=== PATIENT | female | born 1985 | race American Indian/Alaskan Native ===

== ENCOUNTER 2018-01-23 19:01 | Inpatient (IN) | payer BC, OTHER ==
[2018-01-23 19:50] VITALS: BMI 41.1
[2018-01-23 21:01] LABS: BASO % 0.2 % (0.0-2.0); EOS # 0.1 K/uL (0.0-0.7); EOS % 1.1 % (0.0-4.0); HEMOGLOBIN 12.3 g/dL (12.0-16.0); LYMPH # 2.2 K/uL (1.0-4.3); LYMPH % 26.3 % (20.0-40.0); MEAN CORPUSCULAR HEMOGLOBIN 28.1 pg (27.0-31.0); MEAN CORPUSCULAR HGB CONC 33.1 g/dL (33.0-37.0); MEAN PLATELET VOLUME 9.4 fl (7.2-11.7); MONO # 0.9 K/uL (0.0-0.8); MONO % 10.8 % (0.0-10.0); NEUT # 5.1 K/uL (1.8-7.0); NEUT % 61.6 % (50.0-75.0); NRBC % 0.1 % (0.0-0.0); RBC 4.36 Mil/uL (3.80-5.20); RED CELL DISTRIBUTION WIDTH 14.2 % (11.5-14.5); WHITE BLOOD COUNT 8.2 K/uL (4.8-10.8)
[2018-01-24] MEDS ORDERED: Oxytocin 30 UNIT 30 UNITS/500 ML BAG IV ONE ×2 (07:49→07:50)
--- NOTE | 2018-01-24 07:56 | OBHP ---
Datetime: 01/24/2018 07:55 Presentation-Admit: Vertex FHR - Baseline A Provider: 135 Membranes, Provider: Intact Contraction Comments Provider: occ Pool Provider: Negative NICHD Variability Prov Fetus A: Moderate 6-25bpm NICHD Accel Fetus A IP Provider: 15X15 FHR Category Provider Fetus A: Category I NICHD Decel Fetus A IP Provider: None Dilatation, Provider: 2-3 Effacement, Provider: 50 Station, Provider: high Datetime: 01/23/2018 19:45 Admit Comment, IP Provider: 32 y/o female 40.0 wk GA admitted to L_D for IOL due to decrease d movement and oligohydramnios. She denies vaginal bleeding/VFL. She denies headache/nausea/vom iting. She is GBS+. PNC: Dr. Gan Obhx: , GBS+ PMH: alpha thalessemia carrier, eczema, pre-diabetic prior to PSurgical:none Famhx:father has DM Socialhx:denies tobacco, etoh, recreational drug use Home Rx: vitamins and iron supplements 45mg Allergies: cucumbers, NKDA O: Afebrile BP 117/61 HR 85 Heart: RRR Chest: CTA B/L Abd: Soft,NT ,Bs- present FHR: 160 Burna: no contractions SVE: closed cervix per Dr. Gan Assessment: IUP at 40.0 wk GA GBS+ Encounter for Induction of labor NST - Reactive Cervix closed Plan: Admit to LND cbc ordered Type and screen Cervidil 10mg Vag once Penicillin G 5 mu IVPB once and Penicillin G 2.5 mu IVPB Q4H when patient is in labor May have epidural. Anesthesiologist consulted. Vanessa Champagne PGY-I OB Hospitalist on-call : With PGY1, I saw and examined this patinet. She had decreased FM and son o today showed alyssa 5 - sent by Dr Jyothi Gan for IOL. Pt pierce was told about conditoin, meds, pain management, labor, delivey and ...will start Cervidil (SEE PREVIOUS SHOAIB NOTE) EGA AdmitDate IP: 40.0 IP Indication for Induction: Oligohydramnios; Other IP Indication for Induction Oth: decreased movement Datetime: 01/23/2018 19:30 IP Adm Impression: Term, intrauterine ; No Active Labor; Intact Membranes IP Admit Plan: Admit to unit; Initiate labor induction protocol Pelvic Type - PN: Not Done Extremities - PN: Normal Abdomen - PN: Normal Back - PN: Normal Breast - PN: Not Done Lungs - PN: Normal Heart - PN: Normal Thyroid - PN: Normal Neurologic - PN: Normal HEENT - PN: Normal General - PN: Normal Gestation - Est Wks by US: 40.0 IP Hx Assessment: The History has been Reviewed and is Current Vital Signs Provider: Reviewed; Within Normal Limits IP Chief Complaint: Decreased movement Genitourinary Exam: Not Done DTRs - PN: Not Done
--- NOTE | 2018-01-24 07:59 | OBPN ---
Datetime: 01/24/2018 07:55 IP Progress Impression: Reassuring heart rate IP Informed Consent Obtain: Vaginal Delivery IP Progress Plan: Augmentation; Anticipate Vaginal Delivery Pool Provider: Negative Membranes, Provider: Intact Contraction Comments Provider: occ FHR - Baseline A Provider: 135 Presentation-Admit: Vertex IP Progress Note Comment: OB Hospitalist irrigation district manager...earlier 6am I was called and told that decels not ed. Cervidil was removed. I saw patient and explained conditoin...observed tracing and FHR improved /reactive and no decels noted. SVE 2-3cm latent phase of labor...will start Pitocin and PCN for GBS+....pt's questoins answered a nd she understood [facility] ROS[facility] Accel Fetus A IP Provider: 15X15 FHR Category Provider Fetus A: Category I NICHD Variability Prov Fetus A: Moderate 6-25bpm Dilatation, Provider: 2-3 Effacement, Provider: 50 Station, Provider: high NICHD Decel Fetus A IP Provider: None Datetime: 01/23/2018 19:30 Gestation - Est Wks by US: 40.0 Vital Signs Provider: Reviewed; Within Normal Limits
[2018-01-24] MEDS ORDERED: OXYTOCIN/0.9 % NS 20 UNIT/1,000 ML BAG IV SCH (08:00)
[2018-01-24] MEDS ORDERED: Penicillin G 5 Million Unit Vial IVPB ONE (08:03)
[2018-01-24] MEDS ORDERED: Lactated Ringer's 1,000 ML IV SCH ×3 (08:15→16:58)
--- NOTE | 2018-01-24 11:22 | OBPN ---
Datetime: 01/24/2018 10:20 IP Progress Impression Other: Category I FHT IP Procedures: Sterile Vag Exam IP Progress Plan: Continue present management; Induction FHR - Baseline A Provider: 120s IP Progress Note Comment: Category I FHT. Discussed plan with patient and all patient questions ans wered. Continue current management. Vital Signs Provider: Reviewed; Within Normal Limits NICHD Accel Fetus A IP Provider: 15X15 FHR Category Provider Fetus A: Category I NICHD Variability Prov Fetus A: Moderate 6-25bpm Dilatation, Provider: 2-3 Effacement, Provider: 50 Station, Provider: -3 NICHD Decel Fetus A IP Provider: None
[2018-01-24] MEDS ORDERED: Fentanyl/Bupivacaine HCl 250 ML EPI ONE (11:52)
[2018-01-24] MEDS ORDERED: Bupivacaine HCl 0.5% PF (30 ml) Inj ONE (12:04)
[2018-01-24] MEDS ORDERED: ceFAZolin 2 GM in Sodium Chloride 0.9% 100 ML IVPB ONE (13:08)
[2018-01-24] MEDS ORDERED: ceFAZolin IV 1 gm in Dextrose 2 GM/100 ML BAG IVPB ONE (13:08)
[2018-01-24] MEDS ORDERED: Morphine 1 mg/ml preservative-free Inj(Duramorph) ONE (13:32)
[2018-01-24] MEDS ORDERED: Oxytocin 10 Units/ml Inj ONE (13:51)
[2018-01-24] MEDS ORDERED: Oxycodone/Acetaminophen 5/325 mg Tab PO PRN ×4 (14:20→16:58)
[2018-01-25 06:34] LABS: HEMOGLOBIN 11.6 g/dL (12.0-16.0); MEAN CELL VOLUME 84.7 fl (81.0-99.0); MEAN CORPUSCULAR HEMOGLOBIN 27.7 pg (27.0-31.0); MEAN CORPUSCULAR HGB CONC 32.7 g/dL (33.0-37.0); RBC 4.17 Mil/uL (3.80-5.20); RED CELL DISTRIBUTION WIDTH 14.2 % (11.5-14.5); WHITE BLOOD COUNT 10.9 K/uL (4.8-10.8)
--- NOTE | 2018-01-25 08:49 | OBDS ---
DELIVERY PERSONNEL Delivery Doctor: Selma Garcia MD Scrub Nurse: Mel [employer] Program Manager: Tati Barreto RN Anesthesiologist: Dr. Becker Resident: Dr. Man MATERNAL INFORMATION Delivery Anesthesia: Epidural Medications in Delivery: Pitocin 30 units Estimated Blood Loss (ml): 800 Placenta Cultured: No Maternal Complications: None Provider Comments: Primary low flap transverse section via Pfannenstiel incision. Patient d elivered viable with Apgars of 9 and 9 at one and 5 minutes respectively. Normal uterus, ramez l tubes and ovaries bilaterally. Estimated blood loss 800 mL Fluids 1600 mL lactated Ringer Ringer's Urine output 200 mL of clear urine No complications. Patient tolerated procedure well. LABOR SUMMARY EDC: 01/23/2018 00:00 No. Babies in Womb: 1 Attempted: No Labor Anesthesia: Epidural LABOR INFORMATION Reason for Induction: Oligohydramnios; Other Reason for Induction Other: decreased movement Cervical Ripening Agents: Cervidil Oxytocin: Augmentation Group B Beta Strep: Positive Antibiotics # of Doses: 2 Antibiotics Time of Last Dose: 1200 Steroids Given: None Reason Steroids Not Administered: Not Applicable MEMBRANES Membranes Rupture Method: Spontaneous Rupture of Membranes: 01/24/2018 11:30 Length of Rupture (hrs): 1.83 Amniotic Fluid Color: Clear Amniotic Fluid Amount: Small Amniotic Fluid Odor: Normal STAGES OF LABOR Stage 3 hrs: -1 Stage 3 min: -59 CSECTION DELIVERY Primary Indication: Nonreassuring Status Other Primary Indication: Bradycardia Secondary Indication: Failed Induction CSection Urgency: Emergency CSection Incidence: Primary Labor: Labor Elective: Elective CSection Incision: Lower Uterine Transverse BABY A INFORMATION Delivery Date/Time: 01/24/2018 13:20 Method of Delivery: Born in Route : No : N/A Forceps: N/A Vacuum Extraction: N/A Shoulder Dystocia : No SHOULDER DYSTOCIA BABY A Delivery Date/Time: 01/24/2018 13:20 PRESENTATION/POSITION BABY A Presentation: Cephalic Cephalic Presentation: Vertex Breech Presentation: N/A PLACENTA INFORMATION BABY A Placenta Delivery Time : 01/24/2018 11:21 Placenta Method of Delivery: Spontaneous Placenta Status: Delivered SCORES BABY A Heart Rate 1 min: >100 bpm Resp Effort 1 min: Good Cry Reflex Irritability 1 min: Cough or Sneeze or Pulls Away Muscle Tone 1 min: Active Motion Color 1 min: Body [place], Extremities Blue Resuscitation Effort 1 min: Tactile Stimulation SCORE 1 MIN: 9 Heart Rate 5 min: >100 bpm Resp Effort 5 min: Good Cry Reflex Irritability 5 min: Cough or Sneeze or Pulls Away Muscle Tone 5 min: Active Motion Color 5 min: Body [place], Extremities Blue Resuscitation Effort 5 min: Tactile Stimulation SCORE 5 MIN: 9 INFORMATION BABY A Gestational Age at Delivery: 40.0 Gestational Status: Term Outcome : Liveborn Infant Condition : Stable Infant Sex: Male IDENTIFICATION/MEDS BABY A ID Band Number: [id number] ID Band Location: Left Leg; Left Arm WEIGHT/LENGTH BABY A Infant Birthweight (gms): 2590 Infant Weight (lb): 5 Infant Weight (oz): 11 CORD INFORMATION BABY A No. Cord Vessels: 3 Nuchal Cord : N/A Cord Blood Taken: N/A Suction: None ASSESSMENT BABY A Infant Complications: Decreased Variability; Extended Bradycardia; Multiple Variable Decels; O ligohydramnios Physical Findings at Delivery: Within Normal Limits Infant Respirations: Appears Normal Pattern Painter/ALS Called : No Care By: Nirali Kwan Transferred To: Remains with Mother
[2018-01-25] MEDS ORDERED: Multivitamin With Minerals Tab PO SCH (09:00)
[2018-01-25] MEDS: Multivitamin With Minerals Tab PO SCH (09:30)
--- NOTE | 2018-01-25 11:55 | OBPPN ---
Datetime: 01/25/2018 11:49 PP Pain Prov: Within normal limits PP Nausea Prov: Denies PP Flatus Prov: No PP BM Prov: No PP Breasts Prov: Normal PP Heart Prov: Normal PP Lungs Prov: Normal PP Abdomen/Uterus Prov: Normal PP Lochia Prov: Normal PP Vulva/Perineum Prov: Normal PP CVA Tenderness Prov: Normal PP Extremities Prov: Normal PP C/S Incision Prov: Normal PP Progress Prov: Normal PP Impression Other Prov: urinary retention PP Progress Note Prov: She was seen on rounds earlier - right after hensley removed. SHe felt fime and waiting to urinate. No prblems after delivery. Nurse notified that she had abd pain after I had se en her and straight cath ordered (1300cc obtained) H/H A: S/P day 1 urianry retention PLAN: monitor postop; consider foely if another episode Vital Signs Provider PP: Reviewed; Within Normal Limits
--- NOTE | 2018-01-25 20:37 | OP ---
PROCEDURE DATE: 01/24/2018 PREOPERATIVE DIAGNOSES: Category III heart tracing, persistent bradycardia. POSTOPERATIVE DIAGNOSES: Category III heart tracing, persistent bradycardia. OPERATION PERFORMED: Primary low flap transverse section via Pfannenstiel incision. OPERATIVE FINDINGS: Viable infant with Apgars of 9 and 9 at one and five minutes respectively. Normal uterus, normal tubes, and normal ovaries bilaterally. ESTIMATED BLOOD LOSS: 800 mL. FLUIDS: 1600 mL of lactated Ringer's. URINE OUTPUT: 200 mL of clear urine at the end of procedure. COMPLICATIONS: No complications. SURGEON: Santiago Garcia MD OVEN DUMPER: Dr. Man. ANESTHESIOLOGIST: Dylan Becker MD ANESTHESIA: Epidural. DESCRIPTION OF PROCEDURE: The patient was taken to the operating room where epidural anesthesia was found to be adequate. The patient was prepped and draped in normal sterile fashion in the dorsal supine position with leftward tilt. A Pfannenstiel skin incision was made with a scalpel. This was carried down through to the underlying layer of fascia with a scalpel. A midline dissection was made in the fascial layer with scalpel. The fascial incision was then extended bilaterally sharply with curved Mcintyre scissors. The fascial layer was from the underlying rectus muscles both bluntly and sharply with curved Mcintyre scissors. The rectus muscles were at the midline. The peritoneum was then identified, tented up with Kina clamps x2, and entered sharply with Metzenbaum scissors. This peritoneal incision was then extended superiorly and inferiorly with good visualization of the urinary bladder. Bladder blade was inserted into the abdomen. The vesicouterine peritoneum was then identified, tented up with Kina clamps x2, and entered sharply with Metzenbaum scissors. This peritoneal incision was then extended bilaterally with Metzenbaum scissors. The bladder flap was created digitally. The Greenway retractor was placed over the urinary bladder. The uterus was incised with a scalpel. The uterine incision was extended bilaterally bluntly. The infant's head was delivered atraumatically. Nose and mouth were suctioned with bulb suction. The remainder of the infant was delivered without complication. The cord was clamped and cut. The was handed off to awaiting pediatricians. Cord gases were collected. Cord blood was collected. The placenta was removed manually. The uterus was cleared of all clots and debris. The uterine incision was repaired with 0 Vicryl in a running, locked fashion. The second layer with the same suture was used to imbricate the first and to obtain excellent hemostasis. Re-inspection of the uterine incision proved excellent hemostasis. The abdomen and pelvis were irrigated with copious amounts of warm normal saline. Re-inspection of the uterine incision proved excellent hemostasis. All instruments were removed from the patient. The peritoneal layer was closed with a running stitch of 2-0 chromic. The rectus muscles were reapproximated with a running stitch of 2-0 chromic. The fascial layer was closed with a running stitch of 0 Vicryl. Subcutaneous tissue was closed with a running stitch of 3-0 plain. The skin was closed with a subcutaneous stitch of 3-0 Vicryl. The patient tolerated the procedure well. All sponge, lap, and needle counts were correct x2. The patient was given 2 g of Ancef just prior to the beginning of the procedure. There were no complications. The patient was taken to the recovery room in awake and stable condition. Santiago Garcia MD
[2018-01-26] MEDS: Multivitamin With Minerals Tab PO SCH (09:01)
--- NOTE | 2018-01-26 09:59 | OBPPN ---
Datetime: 01/26/2018 09:50 PP Pain Prov: Within normal limits PP Nausea Prov: Denies PP Flatus Prov: Yes PP BM Prov: Yes PP Breasts Prov: Normal PP Heart Prov: Normal PP Lungs Prov: Normal PP Abdomen/Uterus Prov: Normal PP Lochia Prov: Not Done PP Vulva/Perineum Prov: Not Done PP CVA Tenderness Prov: Normal PP Extremities Prov: Normal PP C/S Incision Prov: Normal PP Progress Prov: Normal PP Impression Prov: Normal progression PP Plan Prov: Continue present management PP Progress Note Prov: She fels fine +BM Tolerated diet; ambualting without difficulty H/H A: S/P day 2 PLAN: cont post op care Vital Signs Provider PP: Reviewed; Within Normal Limits
--- NOTE | 2018-01-26 10:02 | OBPPN ---
Datetime: 01/26/2018 09:50 PP Progress Note Prov: She fels fine +BM Tolerated diet; ambualting without difficulty H/H A: S/P day 2 PLAN: cont post op care Check VZV/Rubella IgG -0 no results: follow up results with PMD - msg sent
[2018-01-26 23:48] VITALS: BP 119/71; PULSE 113; RESP 20; TEMP 98.1; O2SAT 98
== END 2018-01-26 19:30 | disposition home or self-care (01) | DRG 765 ==
LOC: H.EROB2 19:01 → H.L&D 19:42 → H.OB/GYN 01-24 16:29
PROVIDERS: ADMIT Obstetrics & Gynecology; ATTEND Obstetrics & Gynecology
PROC: 4A1HXCZ Monitoring of Products of Conception, Cardiac Rate, External Approach (ICD-10-PCS; 2018-01-23)
PROC: 10D00Z1 Extraction of Products of Conception, Low, Open Approach (ICD-10-PCS; principal; 2018-01-24)
DX: O76 Abnormality in fetal heart rate and rhythm complicating labor and delivery (principal); O41.03X0 Oligohydramnios, third trimester, not applicable or unspecified; O36.8130 Decreased fetal movements, third trimester, not applicable or unspecified; Z37.0 Single live birth; O99.824 Streptococcus B carrier state complicating childbirth; O61.9 Failed induction of labor, unspecified; Z3A.40 40 weeks gestation of pregnancy